=== PATIENT | female | born 2000 | race Caucasian/White ===

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

== ENCOUNTER 2019-04-04 00:17 | Emergency (ER) | payer MEDICAID ==
[~2019-04-04] VITALS: Ht 167.6 cm; Wt 123.8 kg
[2019-04-04 00:28] VITALS: BP 125/90
--- NOTE | 2019-04-04 00:28 | NUR ---
19 Y/O FEMALE PRESENTS TO ED WITH C/O RIGHT HAND PAIN X5 DAYS. 5/10 PAIN WITH USE. PT STATES WALKING IN PARKING LOT 5 DAYS AGO, STEPPED IN A POT HOLD, TRIPPED AND FELL FORWARD. THERE ARE X3 SMALL <1CM SCABS IN RIGHT PALM. THERE ARE X2 SMALL HARD MASSES UNDER RIGHT HAND. ER MD AWARE. CONTINUE TO MONITOR.
--- NOTE | 2019-04-04 00:28 | NUR ---
TO BED # 09 AMBULATORY
[2019-04-04] MEDS ORDERED: LIDOCAINE 1% 500 MG/50 ML VIAL INJ SCH (01:00)
[2019-04-04] MEDS ORDERED: LIDOCAINE MPF 1% - 5 mL VIAL 5 ML ONE (01:15)
--- NOTE | 2019-04-04 01:40 | NUR ---
BACITRACIN WAS PLACED ON PTS RIGHT PALM THEM COVERD WITH A NON ADHESIVE GAUZE ROLL GAUZE WAS THEN APPLIED TO WRAP WOUND
[2019-04-04] MEDS ORDERED: BACITRACIN OINT 500 UNITS/GM PKT TP ONE (01:43)
[2019-04-04 01:51] VITALS: BP 125/90
--- NOTE | 2019-04-04 01:51 | NUR ---
PT DISCHARGED BY DR BAILEY. PT STATES 0/10 PAIN UPON DISCHARGE. INSTRUCTED TO F/U WITH PCP AND WHEN TO RETURN TO ER. PT VERBALLIZED UNDERSTANDING OF DC INSTRUCTIONS TO DR BAILEY. ALL QUESTIONS ANSWERED.
== END 2019-04-04 01:51 | disposition home or self-care (01) ==
LOC: MED 00:17
DX: S60.221A Contusion of right hand, initial encounter (principal); W19.XXXA Unspecified fall, initial encounter; Y93.89 Activity, other specified; Y92.89 Other specified places as the place of occurrence of the external cause; Y99.8 Other external cause status
CPT/HCPCS: 73130; 99283; J2001; Q0092

== ENCOUNTER 2019-08-08 21:56 | Emergency (ER) | payer MEDICAID ==
[~2019-08-08] VITALS: Ht 167.6 cm; Wt 120.2 kg
[2019-08-08 22:00] VITALS: BP 138/74
--- NOTE | 2019-08-08 22:08 | NUR ---
PT TRIAGED, SENT BACK TO LOBBY AWAITING FOR BED
--- NOTE | 2019-08-08 23:10 | NUR ---
PT AMBULATED TO BED 5 WITH FAMILY MEMBER
--- NOTE | 2019-08-08 23:33 | NUR ---
19 Y/O FEMALE, PRESENTS TO ED C/O COUGH. PT STATES HAVING COUGH FOR "MORE THAN 1 WEEK." PT WAS SEEN AT [facility] LAST WEEK DUE TO EAR INFECTION AND RX AMOXICILLIN. PT LUNG SOUNDS CLEAR. COUGH IS NON PRODUCTIVE. PT DENIES ANY CHEST PAIN/SOB. NO FEVER NOTED. PT STABLE. ERMD AWARE. WILL CONTINUE TO MONITOR.
[2019-08-08] MEDS ORDERED: cefTRIAXone 2,000 MG in LIDOCAINE MPF 1% 2.1 ML IM ONE (23:35)
[2019-08-09 00:45] VITALS: BP 117/65
--- NOTE | 2019-08-09 00:45 | NUR ---
DPatient discharged with v/s stable. Written and verbal after care instructions given and explained. Patient alert, oriented and verbalized understanding of instructions. Ambulatory with steady gait. All questions addressed prior to discharge. ID band removed. Patient advised to follow up with PMD. Rx of LEVAQUIN, TESSALON, PREDNISONE given. Patient educated on indication of medication including possible reaction and side effects. Opportunity to ask questions provided and answered.
== END 2019-08-09 00:45 | disposition home or self-care (01) ==
LOC: MED 21:56
DX: J40 Bronchitis, not specified as acute or chronic (principal); Z90.49 Acquired absence of other specified parts of digestive tract
CPT/HCPCS: 96372; 99283; J0696; J2001

== ENCOUNTER 2019-08-09 08:32 | Emergency (ER) | payer MEDICAID ==
[~2019-08-09] VITALS: Ht 165.1 cm; Wt 127.5 kg
[2019-08-09 08:35] VITALS: BP 132/81
--- NOTE | 2019-08-09 08:38 | NUR ---
PT TO BED 4 WITH STEADY GAIT
--- NOTE | 2019-08-09 08:59 | NUR ---
PT PRESENTS TO THE ED WITH C/O "HEAD PAIN AROUND EYES" AND HEADACHE X 1 WEEK. PT STATES HEAD IS THROBBING AND RATES PAIN 9/10 AT THIS TIME. PT STATES THAT HER EYES ARE SENSITIVE TO LIGHT. LIGHTS DIMMED IN ROOM FOR PT COMFORT. PERRL AND BRISK. PT REPORTS NAUSEA X 1 DAY, PT DENIES VOMITTING AT THIS TIME. LAST BM 08/08/19. PT REPORTS NO HX MIGRAINES. PT POSITIONED FOR COMFORT. ER MD TO SEE PT. IRAIS HX: PCOS, GALL BLADDER REMOVAL RX: METFORMIN
[2019-08-09] MEDS ORDERED: PROCHLORPERAZINE 10 MG/2 ML VIAL IM ONE (09:20)
[2019-08-09] MEDS ORDERED: diphenhydrAMINE 50 MG/ML VIAL IM ONE (09:20)
--- NOTE | 2019-08-09 11:08 | NUR ---
PT SLEEPING AT BEDSIDE, ABLE TO VISUALIZE RISE AND FALL OF THE CHEST. WILL CONTINUE TO MONITOR.
[2019-08-09 11:37] VITALS: BP 115/68
--- NOTE | 2019-08-09 11:37 | NUR ---
Patient discharged with v/s stable. Written and verbal after care instructions given and explained. Patient alert, oriented and verbalized understanding of instructions. Ambulatory with steady gait. All questions addressed prior to discharge. ID band removed. Patient advised to follow up with PMD. Rx of TRAMADOL HYDROCHLORIDE given. Patient educated on indication of medication including possible reaction and side effects. Opportunity to ask questions provided and answered.
== END 2019-08-09 11:37 | disposition home or self-care (01) ==
LOC: MED 08:32
DX: R51 Headache (principal); R05 Cough; H53.149 Visual discomfort, unspecified; R50.9 Fever, unspecified; E28.2 Polycystic ovarian syndrome; Z98.890 Other specified postprocedural states; Z90.49 Acquired absence of other specified parts of digestive tract
CPT/HCPCS: 96372; 99283; J0780; J1200

== ENCOUNTER 2020-03-15 19:11 | Emergency (ER) | payer MEDICAID ==
[~2020-03-15] VITALS: Ht 167.6 cm; Wt 121.1 kg
[2020-03-15 19:49] VITALS: BP 116/67
--- NOTE | 2020-03-15 20:00 | NUR ---
PT TAKEN TO BED 2
--- NOTE | 2020-03-15 20:12 | NUR ---
Ultrasound at bedside.
[2020-03-15 20:15] VITALS: BP 116/67
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
[2020-03-15 20:18] LABS: BASOPHILS # (AUTO) 0.1 K/uL (0.00-0.22); BASOPHILS % (AUTO) 0.8 % (0.0-2.0); EOSINOPHILS # (AUTO) 0.1 K/uL (0-0.4); EOSINOPHILS % (AUTO) 0.9 % (0.0-4.0); HEMOGLOBIN 13.4 g/dL (12.0-16.0); LYMPHOCYTES # (AUTO) 2.9 K/uL (2.5-16.5); LYMPHOCYTES % (AUTO) 26.1 % (20.5-51.1); MEAN CORPUSCULAR HEMOGLOBIN 28 pg (27-31); MEAN CORPUSCULAR HGB CONC 33 g/dL (33-37); MEAN CORPUSCULAR VOLUME 86.4 fL (80-94); MONOCYTES # (AUTO) 0.5 K/uL (0.8-1.0); MONOCYTES % (AUTO) 4.8 % (1.7-9.3); NEUTROPHILS # (AUTO) 7.4 K/uL (1.8-7.7); NEUTROPHILS % (AUTO) 67.4 % (42.2-75.2); PLATELET COUNT (AUTO) 355 K/uL (140-450); RED BLOOD CELL COUNT(AUTO) 4.74 MIL/uL (4.20-5.40); RED CELL DISTRIBUTION WIDTH 13.6 % (11.6-13.7); WHITE BLOOD COUNT (AUTO) 11.1 K/uL (4.8-10.8)
[2020-03-15 20:23] LABS: APPEARANCE,URINE HAZY (CLEAR); BILIRUBIN,URINE NEGATIVE (NEGATIVE); BLOOD, URINE 3+ (NEGATIVE); COLOR,URINE YELLOW (YELLOW); LEUKOCYTE ESTERASE ,URINE TRACE (NEGATIVE); NITRITE, URINE NEGATIVE (NEGATIVE); PH,URINE 5.5 (5.0-9.0); UGLUCOSE NEGATIVE (NEGATIVE)
--- NOTE | 2020-03-15 20:57 | NUR ---
Dr. Chris examining patient.
[2020-03-15 21:04] LABS: RBC,URINE 80-100 /HPF (0-5)
== END 2020-03-15 21:15 | disposition home or self-care (01) ==
LOC: MED 19:11
DX: O23.41 Unspecified infection of urinary tract in pregnancy, first trimester (principal); O20.0 Threatened abortion; Z3A.01 Less than 8 weeks gestation of pregnancy; Z90.49 Acquired absence of other specified parts of digestive tract
CPT/HCPCS: 36415; 76817; 81001; 81025; 84702; 85025; 87086; 99284; Q0092

== ENCOUNTER 2021-08-17 23:02 | Emergency (ER) | payer MEDICAID ==
[~2021-08-17] VITALS: Ht 167.6 cm; Wt 124.7 kg
[2021-08-17 23:05] VITALS: BP 145/85
--- NOTE | 2021-08-17 23:39 | NUR ---
PT TAKEN TO BED #9
[2021-08-17 23:50] LABS: BASOPHILS % (AUTO) 0.2 % (0.0-2.0); EOSINOPHILS # (AUTO) 0.1 K/uL (0-0.4); EOSINOPHILS % (AUTO) 0.6 % (0.0-4.0); HEMATOCRIT 41.7 % (36-48); HEMOGLOBIN 13.9 g/dL (12.0-16.0); LYMPHOCYTES # (AUTO) 2.1 K/uL (2.5-16.5); MEAN CORPUSCULAR HEMOGLOBIN 29 pg (27-31); MEAN CORPUSCULAR HGB CONC 33 g/dL (33-37); MEAN CORPUSCULAR VOLUME 86.4 fL (80-94); MONOCYTES # (AUTO) 0.6 K/uL (0.8-1.0); MONOCYTES % (AUTO) 5.3 % (1.7-9.3); NEUTROPHILS # (AUTO) 8.7 K/uL (1.8-7.7); NEUTROPHILS % (AUTO) 75.9 % (42.2-75.2); PLATELET COUNT (AUTO) 322 K/uL (140-450); RED BLOOD CELL COUNT(AUTO) 4.83 MIL/uL (4.20-5.40); WHITE BLOOD COUNT (AUTO) 11.5 K/uL (4.8-10.8)
[2021-08-18 00:05] LABS: CREATININE 0.9 mg/dL (0.6-1.3)
[2021-08-18 00:31] LABS: TOTAL BILIRUBIN 0.5 mg/dL (0.0-1.0)
[2021-08-18 00:32] LABS: ALBUMIN 3.8 g/dL (3.4-5.0)
--- NOTE | 2021-08-18 00:34 | NUR ---
US AT BEDSIDE
[2021-08-18 03:07] LABS: APPEARANCE,URINE CLEAR (CLEAR); BILIRUBIN,URINE NEGATIVE (NEGATIVE); BLOOD, URINE NEGATIVE (NEGATIVE); COLOR,URINE YELLOW (YELLOW); LEUKOCYTE ESTERASE ,URINE NEGATIVE (NEGATIVE); NITRITE, URINE NEGATIVE (NEGATIVE); UGLUCOSE NEGATIVE (NEGATIVE)
[2021-08-18 03:12] VITALS: BP 117/64
--- NOTE | 2021-08-18 03:13 | NUR ---
patient cleared for discharge at this time with no further complaints or concerns following dishcarge teaching. advised to follow up with pcp and return if condiition worsens.
== END 2021-08-18 03:13 | disposition home or self-care (01) ==
LOC: MED 23:02
DX: O26.891 Other specified pregnancy related conditions, first trimester (principal); R10.33 Periumbilical pain; Z3A.01 Less than 8 weeks gestation of pregnancy; Z90.49 Acquired absence of other specified parts of digestive tract
CPT/HCPCS: 36415; 76817; 80053; 81003; 81025; 83690; 84702; 85025; 86901; 99284; Q0092

== ENCOUNTER 2021-10-03 02:46 | Emergency (ER) | payer MEDICAID ==
--- NOTE | 2021-10-03 04:05 | NUR ---
PATIENT LEFT WITHOUT BEING SEEN BY DR. LEWIS. NO FURTHER CARE PROVIDED FOR PATIENT.
== END 2021-10-03 04:05 | disposition left against medical advice (07) ==
LOC: MED 02:46
DX: R43.8 Other disturbances of smell and taste (principal); Z53.21 Procedure and treatment not carried out due to patient leaving prior to being seen by health care provider